=== PATIENT | female | born 1990 | race African-American/Black ===

== ENCOUNTER → 2018-09-24 00:55 | Observation (INO) ==
[2018-09-23 21:32] LABS: Basophils # 0.1 K/mcL (0.0-0.2); Basophils % 0.4 %; Eosinophils # 0.4 K/mcL (0.0-0.6); Eosinophils % 2.9 %; Hematocrit 32.8 % (35.3-44.9); Hemoglobin 10.7 g/dL (11.5-15.4); Lymphocytes % 14.9 %; Mean Corpuscular HGB Conc 32.6 g/dL (31.6-35.5); Mean Corpuscular Hemoglobin 28.1 pg (28.0-33.3); Mean Corpuscular Volume 86.1 fL (83.0-100.0); Mean Platelet Volume 11.9 fL (9.4-12.4); Monocytes # 0.8 K/mcL (0.0-1.3); Monocytes % 5.9 %; Platelet Count 147 K/mcL (140-400); Red Blood Count 3.81 M/mcL (3.82-4.97); Red Cell Distribution Width 12.2 % (11.5-14.5); Segmented Neutrophils % 73.9 %
[2018-09-23 21:35] LABS: Bilirubin,Urine Negative (Negative); Blood,Urine Negative (Negative); Clarity,Urine Cloudy (Clear); Color,Urine Yellow (Yellow); Glucose,Urine (UA) Normal (Normal); Ketones,Urine Negative (Negative); Leukocyte Esterase,Urine Negative (Negative); Nitrite,Urine Negative (Negative); PH,Urine 7.5 pH Units (5.0-8.0); Protein,Urine Negative (Neg-Trace); Specific Gravity,Urine 1.007 (1.010-1.025); Urobilinogen,Urine Normal (Normal)
[2018-09-23 21:36] LABS: Bacteria,Urine Few per hpf (None-Few); Hyaline Casts,Urine None Seen per lpf (None-Few); Squamous Epithelial Cell,Urine Many per lpf (None-Few); WBC,Urine 0-3 per hpf (0-3)
[2018-09-23 21:44] LABS: Amphetamine Screen,Urine Negative ng/mL (Cutoff=1000); Barbiturate Screen,Urine Negative ng/mL (Cutoff=200); Benzodiazepines Screen,Urine Negative ng/mL (Cutoff=200); Cannabinoid Screen,Urine Negative ng/mL (Cutoff = 50); Cocaine Screen,Urine Negative ng/mL (Cutoff= 300); Opiate Screen,Urine Negative ng/mL (Cutoff=300); Phencyclidine Screen,Urine Negative ng/mL (Cutoff=25)
[2018-09-23 21:48] LABS: Neutrophils # 9.8 K/mcL (1.6-8.9)
[2018-09-23 21:49] LABS: Platelet Estimate Normal (Normal)
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
[~2018-09-24 00:55] MED LIST: Rho Immune Globulin 1,500 UNIT SYRINGE IM ONE
== END | disposition home or self-care (01) ==
LOC: 1NENULAB
PROVIDERS: ADMIT Advanced Practice Midwife; ATTEND Advanced Practice Midwife

== ENCOUNTER 2018-12-20 06:42 | Inpatient (IN) ==
[2018-12-20 07:07] LABS: Amphetamine Screen,Urine Negative ng/mL (Cutoff=1000); Barbiturate Screen,Urine Negative ng/mL (Cutoff=200)
[2018-12-20 07:08] LABS: Benzodiazepines Screen,Urine Negative ng/mL (Cutoff=300); Cannabinoid Screen,Urine Negative ng/mL (Cutoff = 50); Cocaine Screen,Urine Negative ng/mL (Cutoff= 300); Opiate Screen,Urine Negative ng/mL (Cutoff=300); Phencyclidine Screen,Urine Negative ng/mL (Cutoff=25)
[2018-12-20] MEDS ORDERED: *HR* Nalbuphine 10 MG/ML AMPUL IVP PRN (07:29)
[2018-12-20] MEDS ORDERED: Metoclopramide 10 MG/2 ML VIAL IVP PRN (07:29)
[2018-12-20] MEDS ORDERED: Famotidine 20 MG/2 ML VIAL IVP PRN (07:29)
[2018-12-20] MEDS ORDERED: Naloxone 0.4 MG/ML INJ IVP PRN (07:29)
[2018-12-20] MEDS ORDERED: Ondansetron 4 MG/2 ML VIAL IVP PRN (07:29)
[2018-12-20 07:58] LABS: Basophils # 0.1 K/mcL (0.0-0.2); Basophils % 0.4 %; Eosinophils # 0.2 K/mcL (0.0-0.6); Eosinophils % 1.2 %; Hematocrit 35.9 % (35.3-44.9); Hemoglobin 11.8 g/dL (11.5-15.4); Immature Granulocytes % 0.9 % (0-4); Lymphocytes # 2.1 K/mcL (0.6-4.6); Lymphocytes % 15.3 %; Mean Corpuscular HGB Conc 32.9 g/dL (31.6-35.5); Mean Corpuscular Hemoglobin 26.7 pg (28.0-33.3); Mean Corpuscular Volume 81.2 fL (83.0-100.0); Mean Platelet Volume 11.9 fL (9.4-12.4); Monocytes # 0.9 K/mcL (0.0-1.3); Monocytes % 6.3 %; Neutrophils # 10.5 K/mcL (1.6-8.9); Platelet Count 214 K/mcL (140-400); Red Blood Count 4.42 M/mcL (3.82-4.97); Segmented Neutrophils % 75.9 %; White Blood Count 13.8 K/mcL (4.3-11.1)
[2018-12-20 08:07] LABS: Protein/Creatinine Ratio,Urine 0.14 mg/mg (0.00-0.20)
[2018-12-20 08:17] LABS: Alanine Aminotransferase 10 Units/L (7-52); Aspartate Amino Transferase 30 Units/L (13-39); BUN/Creatinine Ratio 12 (6-26); Blood Urea Nitrogen 10 mg/dL (6-20); Lactate Dehydrogenase 180 Units/L (140-271); Uric Acid 6.1 mg/dL (2.3-7.6); eGFR For African Americans > 60 (> 60); eGFR For Non-African Americans > 60 (> 60)
--- NOTE | 2018-12-20 08:34 | OB/GYN History & Physical ---
Date of Encounter: 12/20/18 Time of Encounter: 08:32 Assessment and Plan (1) 38 weeks gestation of Current visit: Yes Status: Acute (2) Spontaneous onset of labor Current visit: Yes Status: Acute EFM with anticipation of vaginal delivery. Patient declines epidural at this ti me. History of Present Illness Chief complaint: labor HPI: Ms. Zimmer is a 28 year old female G 1 P 0 at 38 3/7 weeks presented for spontaneous contractions that began around 0400 today. She denies any leaking fluid or vaginal bleeding. She reports good movement. Her has been uncomplicated. Past Med Surg Social Fam HX - Past Medical History Source: patient, old records reviewed Medical history: no medical history Additional medical history: hx of heart murmur Psychiatric history: no psych history - Past Surgical History Surgical History: non-contributory Additional surgical history: wisdom teeth - Social History Smoking Status: Former smoker Smokeless Tobacco Status: No Alcohol use: none Drug use: none, marijuana (on her intial drug screen) - Family History Brother Family Member Ethnicity: Non- Living Status: Still Living Hx Family Cardiac Disorders: No Hx Family Respiratory Disorders: No Hx Family Cancer: No Hx Family GI Disorders: No Hx Family Endocrine Disorder: No Hx Family Neuromuscular Disorders: No Hx Family Neurologic Disorders: No Hx Family HEENT Disorders: No Hx Family Autoimmune Disorders: No Obstetrical History - Pregnancies : 1 Medications and Allergies [id number]/Iron Fumarate/FA/Dss [ 19 Tablet] 1 tab PO DAILY 09/23/18 [History] Allergy/AdvReac Type Severity Reaction Status Date / Time No Known Allergies Allergy Verified 12/20/18 06:16 Review of System OB All systems PM: reviewed and no additional remarkable complaints except as stated Exam - Constitutional Constitutional: well developed, well nourished, no acute distress, average body habitus - HEENT HEENT: EOMI, Normocephaly, Mucus Membranes Moist - Lungs Respiratory exam: CTAB - Cardiovascular Cardiovascular exam: RRR - Abdomen Abdomen: Present: bowel sounds normal, gravid, non tender - Extremities Extremities exam: warm (no edema or calf tenderness on exam) - Cervix Dilation: 8 (per RN) - Comments Comments: FHTs category 1, baseline 135 with early decels noted with contractions uvaldo's to 7 lb in cephalic presentation Results Result Diagrams: 12/20/18 07:35 12/20/18 07:35 Abnormal lab results WBC 13.8 K/mcL (4.3-11.1) H 12/20/18 07:35 MCV 81.2 fL (83.0-100.0) L 12/20/18 07:35 MCH 26.7 pg (28.0-33.3) L 12/20/18 07:35 10.5 K/mcL (1.6-8.9) H 12/20/18 07:35 All other labs normal. - VTE Reasons for not Prescribing Prophylaxis: Treatment not Indicated - Low risk for VTE
--- NOTE | 2018-12-20 08:48 | OB Labor Progress Note ---
Date of Encounter: 12/20/18 Time of Encounter: 08:46 Labor Progress Note - Subjective Subjective: Patient continues to be uncomfortable with contractions and requesting AROM - Cervix Cervix: 9/100/0 cephalic - Heart Tones Heart Tones: category 1, 140, early decels noted - Pingree Pingree: q 1-2 minutes - Interventions Interventions: AROM with moderate amount of clear fluid - Plan Plan: Continue EFM in anticipation of vaginal delivery
--- NOTE | 2018-12-20 09:20 | OB/GYN Procedure Note ---
Delivery - Delivery Date: 12/20/18 Provider: Monique Ruano Intrapartum events: none Delivery induction: none Delivery augmentation: rupture of membranes Delivery monitor: external FHT, external uterine Anesthesia: none Quantitated Blood Loss: 200 - Infant (s) Infant A Infant Delivery Date: 12/20/18 Infant Delivery Time: 09:05 Presentation: vertex Position: NADINE Gender: Male Viability: Viable Weight Gram: 2.68 kg at 1 minute: 8 at 5 mins: 9 Shoulder Dystocia: not encountered Specimens collected: cord blood Placenta: spontaneous Cord: nuchal cord, delivered through nuchal - Repair Episiotomy: none Laceration Description: None - Complications Delivery complications: none Delivery comments: Called to room with patient complete and +1 station. Under maternal effort she delivered a viable male with Apgars 8 and 9 at one and 5 minutes respectively over an intact perineum. Following delivery of the head there was a nuchal cord noted that was loose and delivered through. Infant was placed on mom's abdomen and cord was allowed to cease pulsations and was double clamped and cut with assistance from the father. Cord blood was collected. There were no vaginal, labial, or cervical lacerations on exam. Placenta delivered spontaneously, complete, and intact with a three-vessel cord. Mother and are left in skin the skin bonding. Weight is still pending at the time of dictation. Mother and are recovering in the LDR in stable condition - Disposition Mom disposition: stable in LDR [place] disposition: stable in LDR
[2018-12-20] MEDS ORDERED: Oxytocin 20 units/ LR 1000 mL 20 UNIT/1,000 ML BAG IVC ONE (11:07)
[2018-12-20] MEDS ORDERED: Oxytocin 20 units/ LR 1000 mL 20 UNIT/1,000 ML BAG IVC SCH (11:39)
[2018-12-20] MEDS ORDERED: Acetaminophen 325 MG TABLET PO PRN (11:39)
[2018-12-20] MEDS ORDERED: Rho Immune Globulin 1,500 UNIT SYRINGE IM PRN (11:39)
[2018-12-20] MEDS: Ibuprofen 600 MG TABLET PO PRN (20:50)
[2018-12-21] MEDS: Ibuprofen 600 MG TABLET PO PRN (04:55)
[2018-12-21 08:09] LABS: Basophils % 0.4 %; Eosinophils # 0.2 K/mcL (0.0-0.6); Hematocrit 27.1 % (35.3-44.9); Immature Granulocytes % 0.8 % (0-4); Lymphocytes # 2.4 K/mcL (0.6-4.6); Lymphocytes % 20.9 %; Mean Corpuscular HGB Conc 31.4 g/dL (31.6-35.5); Mean Corpuscular Hemoglobin 26.2 pg (28.0-33.3); Mean Corpuscular Volume 83.6 fL (83.0-100.0); Mean Platelet Volume 11.9 fL (9.4-12.4); Monocytes # 0.7 K/mcL (0.0-1.3); Monocytes % 6.3 %; Neutrophils # 7.9 K/mcL (1.6-8.9); Platelet Count 180 K/mcL (140-400); Red Blood Count 3.24 M/mcL (3.82-4.97); Segmented Neutrophils % 69.6 %; White Blood Count 11.3 K/mcL (4.3-11.1)
[2018-12-21 08:12] LABS: Hemoglobin 8.5 g/dL (11.5-15.4)
[2018-12-21 08:40] VITALS: BP 108/71
[2018-12-21] MEDS ORDERED: Prenatal Vit/FA 1 EACH TABLET PO SCH (09:00)
--- NOTE | 2018-12-21 09:07 | Discharge Summary ---
Date of Encounter: 12/21/18 Time of Encounter: 09:07 - Discharge Diagnosis (1) Vaginal delivery Priority: Primary Status: Acute Comments: Pain is well-controlled. Tolerating regular diet. Passing gas but no bowel movement yet. Red lochia present, decreased from yesterday. Ambulating without difficulty. Reports good mood. (2) Mother currently breast-feeding Priority: Secondary Status: Acute Comments: Reports baby is well. Nipples are a little sore but no cracking or bleeding. (3) Anemia due to acute blood loss Priority: Secondary Status: Acute Comments: Reports feeling well & able to move around without difficulty. - Discharge Medications Prescriptions: New Ferrous Sulfate 325 mg PO BID #60 tablet Ibuprofen [Motrin] 600 mg PO Q6HR PRN #30 tablet PRN Reason: Cramping Docusate [Colace] 100 mg PO BID #60 capsule Continued [id number]/Iron Fumarate/FA/Dss [ 19 Tablet] 1 tab PO DAILY Home Medications: [id number]/Iron Fumarate/FA/Dss [ 19 Tablet] 1 tab PO DAILY 09/23/18 [History] Docusate [Colace] 100 mg PO BID #60 capsule 12/21/18 [Rx] Ferrous Sulfate 325 mg PO BID #60 tablet 12/21/18 [Rx] Ibuprofen [Motrin] 600 mg PO Q6HR PRN #30 tablet 12/21/18 [Rx] Allergies/Adverse Reactions: Allergy/AdvReac Type Severity Reaction Status Date / Time No Known Allergies Allergy Verified 12/20/18 06:16 Data Procedures and tests throughout hospitalization: Laboratory Tests 12/20/18 12/20/18 12/20/18 06:53 07:35 07:35 WBC 13.8 H RBC 4.42 Hgb 11.8 Hct 35.9 MCV 81.2 L MCH 26.7 L MCHC 32.9 RDW 13.0 Plt Count 214 MPV 11.9 Immature Gran % 0.9 Seg Neutrophils % 75.9 Lymphocytes % 15.3 Monocytes % 6.3 Eosinophils % 1.2 Basophils % 0.4 Neutrophils # 10.5 H Lymphocytes # 2.1 Monocytes # 0.9 Eosinophils # 0.2 Basophils # 0.1 BUN Creatinine Est GFR ( Amer) Est GFR (Non-Af Amer) BUN/Creatinine Ratio Uric Acid AST ALT Lactate Dehydrogenase Urine Creatinine 88 Protein/Creatinin Ratio 0.14 Urine Total Protein 12 Urine Opiates Screen Negative Ur Buprenorphine Scrn Negative Ur Barbiturates Screen Negative Ur Phencyclidine Scrn Negative Ur Amphetamines Screen Negative U Benzodiazepines Scrn Negative Urine Cocaine Screen Negative U Marijuana (THC) Screen Negative Ur Drug Screen Interp See Below Baby's Blood Type Mother's Blood Type Rhogam Indicated 12/20/18 12/20/18 12/21/18 07:35 10:00 07:27 WBC 11.3 H RBC 3.24 L Hgb 8.5 L D Hct 27.1 L MCV 83.6 MCH 26.2 L MCHC 31.4 L RDW 13.0 Plt Count 180 MPV 11.9 Immature Gran % 0.8 Seg Neutrophils % 69.6 Lymphocytes % 20.9 Monocytes % 6.3 Eosinophils % 2.0 Basophils % 0.4 Neutrophils # 7.9 Lymphocytes # 2.4 Monocytes # 0.7 Eosinophils # 0.2 Basophils # 0.0 BUN 10 Creatinine 0.83 Est GFR ( Amer) > 60 Est GFR (Non-Af Amer) > 60 BUN/Creatinine Ratio 12 Uric Acid 6.1 AST 30 ALT 10 Lactate Dehydrogenase 180 Urine Creatinine Protein/Creatinin Ratio Urine Total Protein Urine Opiates Screen Ur Buprenorphine Scrn Ur Barbiturates Screen Ur Phencyclidine Scrn Ur Amphetamines Screen U Benzodiazepines Scrn Urine Cocaine Screen U Marijuana (THC) Screen Ur Drug Screen Interp Baby's Blood Type O RH POSITIVE Mother's Blood Type O RH NEGATIVE Rhogam Indicated YES Labs on day of discharge: Labs from last 24 hours 12/21/18 12/20/18 07:27 10:00 WBC 11.3 H RBC 3.24 L Hgb 8.5 L D Hct 27.1 L MCV 83.6 MCH 26.2 L MCHC 31.4 L RDW 13.0 Plt Count 180 MPV 11.9 Immature Gran % 0.8 Seg Neutrophils % 69.6 Lymphocytes % 20.9 Monocytes % 6.3 Eosinophils % 2.0 Basophils % 0.4 Neutrophils # 7.9 Lymphocytes # 2.4 Monocytes # 0.7 Eosinophils # 0.2 Basophils # 0.0 Screen Pending Baby's Blood Type O RH POSITIVE Mother's Blood Type O RH NEGATIVE Rhogam Indicated YES Rhogam Req for Mother Pending Date of admission: 12/20/18 10:46 Primary care physician: Latasha Underwood CNP Consults: 12/20/18 11:39 Consult to Tool Chaser [CONS] Routine Comment: Vaginal delivery, consult needed Consult to Supervising Editor Trailer [CONS] Routine Reason for SW Consult: THC + on inital office screen, check cord stat Discharging clinician: Indigo Tenorio Anticipated date of discharge: 12/21/18 - Patient Status Disposition: Home, Self-Care Condition: Good Functional capacity at discharge: independent ambulation Overall status at discharge: patient is progressing back to baseline - Discharge Instructions Follow Up With: Latasha Underwood CNP [Primary Care Provider] - Monique Ruano DO [Partnered Physician] - - Diet and Activity Activity: increase activity as tolerated Diet: advance to your usual diet Hospital Course Reason for admission: active labor Delivery: Episiotomy: none Laceration: none Other procedures: none complications: none Discharge diagnosis: IUP at term delivered baby: male Hospital course: - Delivery Date: 12/20/18 Provider: Monique Ruano Intrapartum events: none Delivery induction: none Delivery augmentation: rupture of membranes Delivery monitor: external FHT, external uterine Anesthesia: none Quantitated Blood Loss: 200 - Infant (s) A Infant Delivery Date: 12/20/18 Infant Delivery Time: 09:05 Presentation: vertex Position: NADINE Gender: Male Viability: Viable Weight Gram: 2.68 kg at 1 minute: 8 at 5 mins: 9 Shoulder Dystocia: not encountered Specimens collected: cord blood Placenta: spontaneous Cord: nuchal cord, delivered through nuchal - Repair Episiotomy: none Laceration Description: None - Complications Delivery complications: none - Disposition Mom disposition: home pp day#1 disposition: home with mother Time Attestation: Total time spent providing and/or coordinating discharge services: Exam - Constitutional Vitals: Temp Pulse Resp BP Pulse Ox 97.8 F 82 16 108/71 97 12/21/18 08:00 12/21/18 08:00 12/21/18 08:00 12/21/18 08:00 12/21/18 04:55 General appearance IM: A&O X 3 - Respiratory Respiratory exam: Present: CTAB - Cardiovascular Cardiovascular exam IM: Present: RRR - GI/Abdominal GI/Abdominal exam IM: normal bowel sounds, soft - Uterine Tone: Firm Uterus Position: 2 Fingers Below Umbilicus - Extremities Exam Extremities exam IM: Present: normal inspection - Neurological Exam Neurological exam: alert, oriented X3
[2018-12-21] MEDS ORDERED: Lanolin 7 G OINT...G. TP PRN (09:16)
== END 2018-12-21 13:22 | disposition home or self-care (01) | DRG 560 ==
LOC: 1NENULAB → 1NENUOBS 11:38
PROVIDERS: ADMIT Registered Nurse; ATTEND Registered Nurse